=== PATIENT | male | born 1955 | race Two or more races ===

== ENCOUNTER 2025-01-12 14:46 | Emergency (ER) | payer OTHER ==
[~2025-01-12] VITALS: Ht 185.4 cm; Wt 100.0 kg
[2025-01-12 14:49] VITALS: O2SAT 99
[2025-01-12] MEDS: SODIUM CHLORIDE 0.9% 1,000 ML IV ONE (16:03)
[2025-01-12] MEDS: KETOROLAC 15MG/ML VIAL IV ONE (16:03)
[2025-01-12 16:30] LABS: BASOPHILS % 0.7 % (0.0-2.0); EOSINOPHILS % 1.5 % (0.0-5.0); HEMATOCRIT. 34.7 % (42.0-52.0); HEMOGLOBIN. 11.8 g/dL (14.0-18.0); LYMPHOCYTES % 27.2 % (20.0-50.0); MEAN PLATELET VOLUME 8.2 fl (7.4-10.4); MONOCYTES % 7.2 % (2.0-8.0); NEUTROPHILS % 63.4 % (40.0-76.0); PLATELET 194 x1000/uL (130-400); RED BLOOD CELL COUNT 3.75 mill/uL (4.7-6.1); RED CELL DISTRIBUTION WIDTH 13.3 % (11.6-14.6)
[2025-01-12 16:41] LABS: INR 1.0
[2025-01-12 16:45] LABS: CREATININE 0.8 mg/dL (0.6-1.3)
[2025-01-12 16:46] LABS: UREA NITROGEN BLOOD 8 mg/dL (9-23)
[2025-01-12 16:47] LABS: ASPARTATE AMINOTRANSFERASE 11 IU/L (<34)
[2025-01-12 16:48] LABS: BILIRUBIN DIRECT 0.2 mg/dL (<=3.0); BILIRUBIN TOTAL 0.5 mg/dL (0.1-1.0); PROTEIN TOTAL 6.7 g/dL (6.0-8.3); TROPONIN I HIGH SENSITIVITY 5 ng/L (3.0-53)
[2025-01-12 18:46] VITALS: BP 153/79; PULSE 67; RESP 11; TEMP 36.4; O2SAT 99
== END 2025-01-12 18:48 | disposition home or self-care (01) ==
LOC: ER 14:46 → CMPBEDREQ 01-13 07:16
DX: S09.90XA Unspecified injury of head, initial encounter (principal); R55 Syncope and collapse; R06.02 Shortness of breath; E11.9 Type 2 diabetes mellitus without complications; V48.4XXA Person boarding or alighting a car injured in noncollision transport accident, initial encounter; Y93.89 Activity, other specified; Y92.89 Other specified places as the place of occurrence of the external cause; Y99.8 Other external cause status
CPT/HCPCS: 99285; 70450; 96374; 71045; 96361; 80076; 80048; 83880; 85025; 85610; 85730; 84484; 36415; 72125; 93005; J1885; J7030